=== PATIENT | female | born 1960 | race Caucasian/White ===

== ENCOUNTER 2017-05-23 08:36 | Outpatient (CLI) | payer BC | END 2017-05-23 18:31 | disposition home or self-care (01) | LOC: SMA 08:36 | DX: Z12.31 Encounter for screening mammogram for malignant neoplasm of breast (principal) | CPT/HCPCS: G0202 ==

== ENCOUNTER 2018-05-27 08:16 | Outpatient (CLI) | payer BC | END 2018-05-27 19:14 | disposition home or self-care (01) | LOC: SMA 08:16 | DX: Z12.31 Encounter for screening mammogram for malignant neoplasm of breast (principal) | CPT/HCPCS: 77067 ==

== ENCOUNTER 2019-04-02 08:00 | Outpatient (CLI) | payer SELFPAY | END 2019-04-02 14:00 | disposition still patient (30) | LOC: SMA 08:00 | DX: Z12.31 Encounter for screening mammogram for malignant neoplasm of breast (principal) | CPT/HCPCS: 77067 ==